=== PATIENT | male | born 1985 | race Caucasian/White ===

== ENCOUNTER 2018-01-11 06:08 | Emergency (ER) | payer OTHER ==
[2018-01-11] MEDS ORDERED: Gentamicin 0.3% Ophth Soln 5 ML Bottle EYEBOTH ONE (06:09)
--- NOTE | 2018-01-11 06:15 | EDM.PDOC ---
ED HPI GENERAL MEDICAL PROBLEM - General Stated Complaint: EYE PROBLEM Time Seen by Provider: 01/11/18 06:08 Source of Information: Reports: Patient History Limitations: Reports: No Limitations - History of Present Illness INITIAL COMMENTS - FREE TEXT/NARRATIVE: 32 y.o.w.m came to the ed due to acute onset of tearing and burning of his right eye with photophobia. Pt denied trauma.Pt was yesterday working with several people. Pt is wearing contact lenses. He took them out before he arrived here in the ED. No N/V/D or any other acute medical issues. BP 139/72 pulse 72 RR 20 Temp 36.8 Onset: Gradual Onset Date: 01/10/18 Onset Time: 16:00 Duration: Hour(s):, Intermittent Location: Reports: Face Quality: Reports: Ache, Burning Severity: Mild Improves with: Reports: None Worsens with: Reports: Other (bright light) Context: Reports: Sick Contact, Other ((?)) Associated Symptoms: Reports: No Other Symptoms right eye Pain Score (Numeric/FACES): 4 - Related Data Allergies Allergy/AdvReac Type Severity Reaction Status Date / Time No Known Allergies Allergy Verified 01/11/18 06:13 Home Meds: Home Meds NK [No Known Home Meds] 01/11/18 [History] ED ROS GENERAL - Review of Systems Review Of Systems: See Below Constitutional: Reports: No Symptoms HEENT: Reports: Eye Discharge, Eye Pain Respiratory: Reports: No Symptoms Cardiovascular: Reports: No Symptoms Endocrine: Reports: No Symptoms GI/Abdominal: Reports: No Symptoms : Reports: No Symptoms Musculoskeletal: Reports: No Symptoms Skin: Reports: No Symptoms Neurological: Reports: No Symptoms Psychiatric: Reports: No Symptoms Hematologic/Lymphatic: Reports: No Symptoms Immunologic: Reports: No Symptoms ED EXAM GENERAL W FULL EYE - Physical Exam Exam: See Below Exam Limited By: No Limitations General Appearance: Alert, WD/WN, Mild Distress Eye Exam: Right Eye: Conjunctival Injection, Bilateral Eye: EOMI, PERRL, Vision Changes (20/200 on both eyes) Visual Acuity (R) 20/: 200 Visual Acuity (L) 20/: 200 Eyelids: Bilateral: Normal Appearance Conjunctiva & Sclera: Right: Injected Cornea Exam: Right: Normal Appearance Extraocular Movements: Bilateral: Intact Pupils: Normal Accommodation Pupillary Size: Bilateral: 4 mm Pupillary Reaction: Bilateral: Brisk Anterior Chamber: Bilateral: Normal Appearance Ears: Normal External Exam Nose: Normal Inspection Throat/Mouth: Normal Inspection Head: Atraumatic, Normocephalic Neck: Normal Inspection, Supple, Non-Tender, Full Range of Motion Respiratory/Chest: No Respiratory Distress Cardiovascular: Normal Peripheral Pulses GI/Abdominal: Normal Bowel Sounds (Male) Exam: Deferred (Female) Exam: Deferred Rectal (Males) Exam: Deferred Rectal (Female) Exam: Deferred Back Exam: Normal Inspection, Full Range of Motion Extremities: Normal Inspection, Normal Range of Motion, Non-Tender, No Pedal Edema Neurological: Alert, Oriented, CN II-XII Intact, Normal Cognition, Normal Gait Psychiatric: Normal Affect, Normal Mood Skin Exam: Warm, Dry, Intact, Normal Color, No Rash Lymphatic: No Adenopathy Course - Vital Signs Text/Narrative:: 32 y.o.w.m came to the ed due to acute onset of tearing and burning of his right eye with photophobia. Pt denied trauma.Pt was yesterday working with several people. Pt is wearing contact lenses. He took them out before he arrived here in the ED. No N/V/D or any other acute medical issues. BP 139/72 pulse 72 RR 20 Temp 36.8 PE: Draining, burning R eye: severe conjunctival injections, No FB seen, ant chamber nl Visual acuity: 20/200 on both eyes, uncorrected, without contact lenses Test: anest. with tetracaine, Flourescein test neg Impression: Acute conjunctivitis r eye (bacterial vs viral) Tx: Gentamicin Plan: D/C with instruction Last Recorded V/S: Last Vital Signs Temp 36.8 C 01/11/18 06:10 Pulse 81 01/11/18 06:10 Resp 16 01/11/18 06:10 BP 139/72 01/11/18 06:10 Pulse Ox 99 01/11/18 06:10 Departure - Departure Time of Disposition: 06:27 Disposition: Home, Self-Care 01 Condition: Good Clinical Impression: Conjunctivitis Qualifiers: Conjunctivitis type: acute Acute conjunctivitis type: unspecified Laterality: right Qualified Code(s): H10.31 - Unspecified acute conjunctivitis, right eye - Discharge Information Instructions: Bacterial Conjunctivitis Referrals: PCP,None [Primary Care Provider] - Forms: ED Department Discharge Additional Instructions: Please f/u with your Eye doctor in the next 24 hours if your symptoms do not improve, please apply 2 drops of Abx in both eyes every 8 hours, take motrin for pain, please come back to the ED if your symptoms get worse acutely
== END 2018-01-11 06:51 | disposition home or self-care (01) ==
LOC: FB.ED 06:08
DX: H10.31 Unspecified acute conjunctivitis, right eye (principal)
CPT/HCPCS: 99282; A9270-GY